=== PATIENT | female | born 1995 ===

== ENCOUNTER 2021-09-07 08:00 | Outpatient (RCR) | payer BC, SELFPAY ==
[2021-08-16 13:56] VITALS: BMI 27.4
--- NOTE | 2021-08-16 14:27 | PC.NURSE ---
Patient self referred to the [facility] [place] [facility] d/t severe depression and anxiety. Reports passive SI having thoughts, for example, wishing she did not exist or what if her car veered off the road. Denied plan or intent. Reports she has a few of these thoughts daily. Hx of chronic passive SI however reports the thoughts are stronger and intrusive and this scares her. Patient also reports SIB superficially cutting her forearm or thigh. Last cut 2 weeks ago. Reports increased work related stressors in addition to working from home for the past 18 months and feels increasingly isolated are triggers. Patient is taking a leave of absence from her job to work on her mental health. Patient works as an [employer]. She lives alone in her apartment. Identified protective factors are her cat and the thought that she is going to be an aunt one day as her brother is planning on having children. Asked if patient started to feel unsafe who could she call and she stated her therapist. Patient has the crisis number if needed. Brother and friends are her identified supports along with her therapist. Patient is alert and oriented x4. Calm and cooperative. Presents with depressed mood anxious affect. Medications reconciled with patient and patient's pharmacy. Patient reports taking medications as prescribed. Gave verbal permission to email her a copy of her safety plan.
--- NOTE | 2021-08-16 15:10 | PC.NURSE ---
Case opened in treatment team
--- NOTE | 2021-08-16 16:40 | HO.PS.ADMBH ---
HPI Chief Complaint: Anxiety, Depression Sources of Information: patient interviewed, chart reviewed and crisis/core team assessment reviewed HPI Subjective Notes: Harden Warning and Conditional Voluntary Guardianship: No Medical Problems Affecting Mental Status: No Narrative: Patient is a 26-year-old single female, referred by her therapist, due to increased symptoms of depression that include passive SI, thoughts of cutting. She also reports having anxiety with episodes of panic. She reports that she has struggled with depression for years, and last July her symptoms increased. At that time she began individual therapy but did not continue. She reports that in the spring she started working from home, and the isolation has exacerbated thoughts of suicide and cutting. She has been taking medication but was not on therapy. She has a current therapist however now, who also recommended PHP. She does describe having suicidal ideation off and on since she was a teen. She states at times she has wished she would not wake up. She describes these as fleeting, but states they have increased in severity during pandemic. She also describes situational depression. Current medications include Lexapro, amitriptyline, Wellbutrin, Xanax. She also reports history of migraines. She is on a wait list for a prescriber currently. And has an upcoming appointment in August. She did meet with the neuropsychology division chief earlier in the summer, who suggested several changes of her medications. She has been experiencing increasingly intrusive thoughts regarding self-harm, and also difficulty sleeping. She reports past medication trials including sertraline. She states that it did not help her, and that she continue to need higher and higher doses. She took Effexor at 1 point, but experienced nausea and vomiting. Patient describes symptoms of difficulty falling asleep, multiple awakenings, severe symptoms of anxiety and depression including hopelessness, helplessness, tearfulness, anhedonia. She currently lives alone and has found this extremely isolating. She describes a support system including her brother and multiple friends. She denies any history of inpatient level of care or PHP. Past Psychiatric History: Therapist Medical Evaluation Reviewed: Yes [facility]LY [facility] Medical History Migraine Family History: Father lymphoma. Mother breast cancer, double mastectomy. Social History: Raised by parents and her older brother. Reports emotionally repressed household during her childhood. Describes her brother as supportive. Met all developmental milestones as expected. Graduated from high school, college, grad school. Currently employed as [employer]. Substance History: Vapes marijuana approximately 4 times monthly. No other substance use reported. Trauma History: Reports parents as emotionally negletful while she was growing up. Diagnostics Vital Signs (24Hr): Body Mass Index 27.4 Meds/Allergies Allergies Allergies Allergy/AdvReac Type Severity Reaction Status Date / Time No Known Allergies Allergy Verified 08/16/21 14:30 Mental Status Exam Mental Status Exam Narrative: Well-developed, well-nourished female, in NAD. Alert and oriented x4. Patient Appearance: Well Grooomed and Appropriate Patient Orientation: Person, Place, Time and Situation Level of Consciousness: Awake, Appropriate and Alert Patient Behavior: Appropriate, Cooperative and Good Eye Contact Mood Description: Appropriate, Depressed and Anxious Affect Description: Calm, Appropriate, Depressed and Anxious Ability to Follow Directions: Excellent Speech Pattern: Clear, Appropriate and Coherent Memory Description: Intact Hallucinations: None Delusions: Not Present Thought Process: Intact Thought Content: positive for Intact, positive for Goal Oriented, positive for Linear and positive for Suicidal Ideation (Describes intrusive thoughts to harm self, with increasing frequency over past few months..) Depressive Symptoms: Increased Anxiety, Increased Irritability, Feelings of Worthlessness, Hopelessness, Feelings of Guilt, Unhappiness, Thoughts of /Suicide (no active plan) and Difficulty Concentrating Judgement: Fair Telehealth Telehealth Location of provider rendering services: practice address Location of patient: address on file Patient Identification confirmed using: Name, : Yes Telehealth method: video Patient verbally consented to treatment: Yes Patient verbally consented to billing insurance company: Yes Patient informed of any privacy concerns related to visit: Yes Time spent with patient (mins): 45 Assessment & Plan Assessment & Plan (1) Major depressive disorder, recurrent severe without psychotic features: Status: Acute Code(s): F33.2 - Major depressive disorder, recurrent severe without psychotic features Assessment and Plan: Patient reports that she feels current doses of medications appear to be helping, including Wellbutrin and Lexapro combination. However, she is describing increased intrusive thoughts to harm self, and would like to focus on this symptom. She denies any intent or plan at this time, and describes it more as passive. Currently no safety concern. discussed adding a low does atypical antipsychotic. We discussed weight gain with quetiapine as a potential side effect, although would also would help with sleep. We discussed other alternatives including low-dose risperidone all, which can also affect week. Patient is willing to try Abilify 2 mg at this time. (2) Generalized anxiety disorder: Status: Acute Code(s): F41.1 - Generalized anxiety disorder Assessment and Plan: Patient reports she is taking the Xanax as prescribed. We discussed a recommendation she had received in the past about switching over to Klonopin, as it is longer acting. We discussed other options such as BuSpar, Vistaril. This administrative underwriter did advise that she make 1 medication change at a time, however. She agreed to this, and is willing to revisit idea of changing Xanax during subsequent visit. Assessment and Plan: 1. Start Abilify 2 mg daily at night. 2. Continue other medications as ordered. 3. Will follow up as per protocol. Patient educated on: diagnosis, medication risk/benefits and therapeutic strategies Informed Consent: understands Reason for continued partial hosp. stay Substantial Risk for: harm to self, inability to function and med/psych decompensation Certification I certify that partial hospital treatment is medically necessary due to the symptoms and problems resulting from the patient's mental illness and the failure to treat the patient at the partial hospital level of care would likely result in the patient requiring inpatient psychiatric care which could not be prevented at a less intensive level of care.
--- NOTE | 2021-08-23 14:25 | HO.PHPPROGNO ---
Subjective Subjective Date of Service: 08/23/21 Reason For Visit: Anxiety, Depression Guardianship: No Medical Problems Affecting Mental Status: No Interim History: Keyla reports feeling Abilify has helped somewhat with depressive symptoms, and says they have decreased. Reports decrease in intrusive thoughts, and no thoughts to harm self or cut. Patient has also reported decreased anxiety, states she has only needed to use her Xanax p.r.n. twice daily 3 times out of the past 7 days. She does continue utilizing it at night. Feels overall that PHP is helpful. Medication Compliance: Yes Side effects from medications: No Attending Groups: Yes Review of Systems Acute medical concerns: No Medical Review of Systems: unchanged Review of Systems Review of Systems Yes all other systems are reviewed and are negative Constitutional: Reports no additional constitutional complaints Eyes: Reports as per HPI Reports Normal hearing present Cardiovascular: Reports no additional cardiovascular complaints Reports Normal hearing present Mental Status Exam Mental Status Exam Narrative: Well-developed, well-nourished female, in NAD. Sitting up, fully attentive. Well groomed and appropriately dressed. Patient Appearance: Well Grooomed and Appropriate Patient Orientation: Person, Place, Time and Situation Level of Consciousness: Appropriate and Alert Patient Behavior: Appropriate and Cooperative Mood Description: Appropriate, Depressed and Anxious Affect Description: Appropriate, Depressed and Anxious Patient Cognition Impaired: No Ability to Follow Directions: Excellent Speech Pattern: Clear, Appropriate and Coherent Memory Description: Intact Hallucinations: None Delusions: Not Present Thought Process: Intact, Goal Oriented and Linear Thought Content: positive for Intact, positive for Goal Oriented and positive for Linear Depressive Symptoms: Increased Anxiety and Loss of Int. in Activity Judgement: Fair Diagnostics Vital Signs (24Hr): Body Mass Index 27.4 Assessment & Plan Assessment & Plan (1) Major depressive disorder, recurrent severe without psychotic features: Status: Acute Code(s): F33.2 - Major depressive disorder, recurrent severe without psychotic features Assessment and Plan: Patient reports decrease in intrusive thoughts of self-harm and cutting. Reports no side effects regarding Abilify. Overall feels is improving while in PHP. (2) Generalized anxiety disorder: Status: Acute Code(s): F41.1 - Generalized anxiety disorder Assessment and Plan: Patient has Xanax scheduled 0.25 p.r.n. b.i.d. for anxiety. Reports that over the past 7 days, she has only needed to take it twice in 1 day 3/7 days. She reports this is an improvement. We discussed consideration to switch to a long-acting benzodiazepine such as Klonopin. Discussed alternatives such as increasing Lexapro to help with anxiety or increase amitriptyline. Patient reports that she did not tolerate when Lexapro was increased at 1 time, as it made her feel ?too tired ?. She is however willing to consider increase amitriptyline. Discussed leaving Xanax as is, as it is effectively helping manage anxiety, she has been using it with less frequency over the past week, with no type of withdrawal symptoms, and does not appear to be abusing any way. She reports that she is concerned that when she returns to work she will need more Xanax, as she seems to be experiencing situational anxiety regarding work. She did state however that she is learning healthier coping skills while in [facility], and will continue to work on these while attending groups. Assessment and Plan: 1. Increase amitriptyline to 10mg in am, 25mg at bedtime. 2. Continue abilfy 2mg at bedtime. 3. Continue with all other medications as prescribed. 4. Will follow up in several days in order to assess level of anxiety and any possible sedation with added amitriptyline. Patient educated on: diagnosis, medication risk/benefits and therapeutic strategies Informed Consent: understands Certification I certify that partial hospital treatment is medically necessary due to the symptoms and problems resulting from the patient's mental illness and the failure to treat the patient at the partial hospital level of care would likely result in the patient requiring inpatient psychiatric care which could not be prevented at a less intensive level of care. Greater than 50% of the session was spent on counseling and/or coordination of care Discharge Plan Discharge Attending provider: Juni Bernstein Medications: New aripiprazole [Abilify] 2 mg tablet 2 mg PO BEDTIME Qty: 14 RF: 0 No Action sumatriptan succinate 50 mg Tablet 50 mg PO DAILY PRN (Reason: Migraine Headache) RF: 0 alprazolam 0.25 mg Tablet 0.25 mg PO BID PRN (Reason: Anxiety) RF: 0 amitriptyline 25 mg Tablet 25 mg PO BEDTIME RF: 0 escitalopram oxalate [Lexapro] 20 mg Tablet 20 mg PO DAILY RF: 0 bupropion HCl [Wellbutrin XL] 300 mg Tablet Extended Release 24 Hr 300 mg PO QAM RF: 0 melatonin 5 mg Lozenge 5 mg PO BEDTIME PRN (Reason: Sleep) RF: 0 Telehealth Telehealth Location of provider rendering services: practice address Location of patient: address on file Patient Identification confirmed using: Name, : Yes Telehealth method: video Patient verbally consented to treatment: Yes Patient verbally consented to billing insurance company: Yes Patient informed of any privacy concerns related to visit: Yes Time spent with patient (mins): 15
--- NOTE | 2021-08-25 14:04 | P.PNPSP_ITS ---
Subjective Subjective Date of Service: 08/25/21 Reason For Visit: Anxiety, Depression Guardianship: No Medical Problems Affecting Mental Status: No Interim History: Vandana reports decrease in intrusive thoughts, states that she has had several regarding passive SI, but that they are much decreased since she began Abilify. She reports she started taking 10 mg amitriptyline in the morning, in addition to her 25 mg at bedtime. She reports it not yet appear to help with anxiety, but it has made her tired. Reports she continues taking a reduced dose of Xanax. States that when she went away for vacation this summer she did not take it for a week and did not need it. Sera expressed concern regarding return to work, as work is a trigger for her anxiety. Medication Compliance: Yes Side effects from medications: No Attending Groups: Yes Review of Systems Acute medical concerns: No Medical Review of Systems: unchanged Review of Systems Review of Systems Yes all other systems are reviewed and are negative Mental Status Exam Mental Status Exam Narrative: Patient presents as alert and oriented x4, well-nourished, well- developed female, in no apparent distress. Appropriately groomed and dressed. Sitting up with erect posture fully attentive during encounter. Eye contact within normal limits. Calm and cooperative behavior, no involuntary movements noted. Speech was fluent, unimpaired, normal rate and rhythm. Mood anxious, affect congruent. Thought process and associations were linear, goal directed. Thought content was normal, future oriented. No evidence of any type of delusional thoughts or hallucinations noted or reported. Patient does report random passing intrusive thoughts of passive SI, but states they have decreased much since starting Abilify. Patient has no intent or plan to act on any type of SI. No thoughts of harming others. Appears to be reliable historian. Judgment and insight fair. Ambulation not observed. Diagnostics Vital Signs (24Hr): Body Mass Index 27.4 Assessment & Plan Assessment & Plan (1) Major depressive disorder, recurrent severe without psychotic features: Status: Acute Code(s): F33.2 - Major depressive disorder, recurrent severe without psychotic features Assessment and Plan: Patient is satisfied with current medications and reports her depressive symptoms are controlled at this time, including a decrease in any intrusive thoughts of si. (2) Generalized anxiety disorder: Status: Acute Code(s): F41.1 - Generalized anxiety disorder Assessment and Plan: Patient reports continuing with anxiety symptoms. She does agree that although she has a certain baseline underlying anxiety, at times her anxiety is situational, especially when it is surrounding work related issues. She reports that often times she has difficulty sleeping, and takes the Xanax at night not only for anxiety but also to help her sleep. She is not comfortable with the amitriptyline 10 in the morning, as it is making her tired. We discussed clonidine as a possible medication. Patient reports that often times she does feel her heart racing at night and does tend to have a higher blood pressure during those times. She was agreeable to starting this med. Assessment and Plan: 1. Change amitriptyline to 35 mg at bedtime, stop a.m. 10 mg dose. Patient has ample supply at home, no script has been sent in for 10 mg tabs. 2. Add clonidine 0.1 mg at bedtime. A 7-day supply sent to pharmacy. 3. Continue other medications as prescribed. 4. Will follow-up with patient as per protocol. Patient educated on: diagnosis, medication risk/benefits and therapeutic strategies Informed Consent: understands Reason for contiued partial hosp. stay Substantial Risk for: inability to function and med/psych decompensation Certification I certify that partial hospital treatment is medically necessary due to the symptoms and problems resulting from the patient's mental illness and the failure to treat the patient at the partial hospital level of care would likely result in the patient requiring inpatient psychiatric care which could not be prevented at a less intensive level of care. Greater than 50% of the session was spent on counseling and/or coordination of care Discharge Plan Discharge Attending provider: Juni Bernstein Additional Instructions: New PCP appointment at [address] with Shasha Sotelo on November 09, 2021 at 1:45 PM. Office # [phone]. Patient to fax records from previous PCP prior to appointment. Fax number . Medications: New aripiprazole [Abilify] 2 mg tablet 2 mg PO BEDTIME Qty: 14 RF: 0 clonidine HCl 0.1 mg tablet 0.1 mg PO BEDTIME Qty: 7 RF: 0 No Action sumatriptan succinate 50 mg Tablet 50 mg PO DAILY PRN (Reason: Migraine Headache) RF: 0 alprazolam 0.25 mg Tablet 0.25 mg PO BID PRN (Reason: Anxiety) RF: 0 amitriptyline 25 mg Tablet 25 mg PO BEDTIME RF: 0 escitalopram oxalate [Lexapro] 20 mg Tablet 20 mg PO DAILY RF: 0 bupropion HCl [Wellbutrin XL] 300 mg Tablet Extended Release 24 Hr 300 mg PO QAM RF: 0 melatonin 5 mg Lozenge 5 mg PO BEDTIME PRN (Reason: Sleep) RF: 0 Stand Alone Forms: Patient Portal Discharge page Telehealth Telehealth Location of provider rendering services: practice address Location of patient: address on file Patient Identification confirmed using: Name, : Yes Telehealth method: video Patient verbally consented to treatment: Yes Patient verbally consented to billing insurance company: Yes Patient informed of any privacy concerns related to visit: Yes Time spent with patient (mins): 15
--- NOTE | 2021-08-26 09:57 | PC.NURSE ---
Patient will not be attending the program today as she has a doctors appointment.
--- NOTE | 2021-08-30 15:52 | P.PNPSP_ITS ---
Subjective Subjective Date of Service: 08/30/21 Reason For Visit: Anxiety, Depression Guardianship: No Medical Problems Affecting Mental Status: No Interim History: Keyla reports that the added clonidine is helping her to sleep better, and has decreased her use of Xanax. She reports continuing with Abilify, which she attributes to working well. Reports decreased intrusive thoughts of SI. She states that she did have some passive SI over the weekend, buth that they were brief, with no intent or plan. She denies any thoughts of harm today. Medication Compliance: Yes Side effects from medications: No Attending Groups: Yes Review of Systems Acute medical concerns: No Medical Review of Systems: unchanged Review of Systems Review of Systems Yes all other systems are reviewed and are negative Mental Status Exam Mental Status Exam Narrative: Well-nourished, well-developed female, in NAD. Fully attentive during encounter. Patient Appearance: Well Grooomed and Appropriate Patient Orientation: Person, Place, Time and Situation Level of Consciousness: Awake, Appropriate and Alert Patient Behavior: Appropriate, Cooperative and Good Eye Contact Mood Description: Calm, Appropriate and Depressed Affect Description: Appropriate, Depressed and Anxious (somewhat, but much improved.) Patient Cognition Impaired: No Ability to Follow Directions: Excellent Speech Pattern: Clear, Appropriate and Coherent Memory Description: Intact Hallucinations: None Delusions: Not Present Thought Process: Intact, Goal Oriented and Linear Thought Content: positive for Intact, positive for Goal Oriented and positive for Linear Depressive Symptoms: Increased Anxiety, Loss of Int. in Activity, Hopelessness, Feelings of Guilt and Thoughts of /Suicide (fleeting, no intent or plan) Judgement: Fair Diagnostics Vital Signs (24Hr): Body Mass Index 27.4 Assessment & Plan Assessment & Plan (1) Major depressive disorder, recurrent severe without psychotic features: Status: Acute Code(s): F33.2 - Major depressive disorder, recurrent severe without psychotic features Assessment and Plan: Patient reports overall depression is improving. Reports much less intrusive thoughts regarding thoughts of self-harm, and none today. no safety concerns at this time. She reports that she was still taking the amitriptyline with 25 mg at night in 10:00, plans to switch it today to take the whole 35 mg at bedtime. (2) Generalized anxiety disorder: Status: Acute Code(s): F41.1 - Generalized anxiety disorder Assessment and Plan: Patient reports that clonidine is working very well for anxiety. Discussed adding a low dose in the morning, as she describes her anxiety as noticeable when she wakes up. She was agreeable to adding a dose of 0 0.05 mg clonidine in the morning. Assessment and Plan: 1. Increase clonidine to 0.05mg in am, 0.1mg at bedtime. 2. Continue other medications without changes at this time. 3. Refills for a 30-day supply of clonidine and abilify sent to pharmacy. Patient reports she does not need any other refills at this time. 4. Follow-up as per protocol. Patient educated on: diagnosis, medication risk/benefits and therapeutic strategies Informed Consent: understands Reason for contiued partial hosp. stay Substantial Risk for: inability to function and med/psych decompensation Certification I certify that partial hospital treatment is medically necessary due to the symptoms and problems resulting from the patient's mental illness and the failure to treat the patient at the partial hospital level of care would likely result in the patient requiring inpatient psychiatric care which could not be prevented at a less intensive level of care. Greater than 50% of the session was spent on counseling and/or coordination of care Discharge Plan Discharge Attending provider: Juni Bernstein Additional Instructions: New PCP appointment at [address] with Shasha Sotelo on November 09, 2021 at 1:45 PM. Office # [phone]. Patient to fax records from previous PCP prior to appointment. Fax number [phone]. Medications: New aripiprazole [Abilify] 2 mg tablet 2 mg PO DAILY Qty: 30 RF: 0 clonidine HCl 0.1 mg tablet 0.1 mg PO BID MDD see instructions below. Qty: 45 RF: 0 No Action sumatriptan succinate 50 mg Tablet 50 mg PO DAILY PRN (Reason: Migraine Headache) RF: 0 alprazolam 0.25 mg Tablet 0.25 mg PO BID PRN (Reason: Anxiety) RF: 0 amitriptyline 25 mg Tablet 25 mg PO BEDTIME RF: 0 escitalopram oxalate [Lexapro] 20 mg Tablet 20 mg PO DAILY RF: 0 bupropion HCl [Wellbutrin XL] 300 mg Tablet Extended Release 24 Hr 300 mg PO QAM RF: 0 melatonin 5 mg Lozenge 5 mg PO BEDTIME PRN (Reason: Sleep) RF: 0 Stand Alone Forms: Patient Portal Discharge page Telehealth Telehealth Location of provider rendering services: practice address Location of patient: address on file Patient Identification confirmed using: Name, : Yes Telehealth method: video Patient verbally consented to treatment: Yes Patient verbally consented to billing insurance company: Yes Patient informed of any privacy concerns related to visit: Yes Time spent with patient (mins): 15
--- NOTE | 2021-09-01 16:27 | PC.NURSE ---
I spoke with the clients therapist Di Anderson about client progress and discharge plans including, possibly DBT.
--- NOTE | 2021-09-07 12:03 | P.PNPSP_ITS ---
Subjective Subjective Date of Service: 09/07/21 Reason For Visit: Anxiety, Depression Interim History: I evaluated the pt this morning and upon interview she reports her sleep has continued to be interrupted. Says the clonidine has ?helped a lot? for falling asleep but she is waking up once or twice a night, has difficulty falling back to sleep, will end up taking half a xanax. Discussed switching to klonopin, as she has reviewed benefits of utilizing a longer acting benzo with prev prescribers and would like to try this to help with sleep maintenance and getting off xanax. Denies SE on abilify and says it has ?helped a lot with intrusive thoughts,? says depressive or suicidal thoughts are more passive, ?I wont ruminate on them.? Denies plan or intent for suicide. Continues to endorse sx of depression, ?still wanting to stay in bed.? Interested in increasing abilify dose. Has been on lexapro for about a year, dose increased to 20 mg 6 mo ago, thinks it has helped. Denies the increase in amitriptyline helping. Has initial medication eval appointment at [facility] on Monday. Says she is feeling safe. Looking into DBT groups. Medication Compliance: Yes Side effects from medications: No Attending Groups: Yes Review of Systems Acute medical concerns: No Medical Review of Systems: unchanged Mental Status Exam Mental Status Exam Narrative: Narrative:?Well-nourished, well-developed female, in NAD.? Fully attentive during encounter. Patient Appearance:?Well Grooomed and Appropriate Patient Orientation:?Person, Place, Time and Situation Level of Consciousness:?Awake, Appropriate and Alert Patient Behavior:?Appropriate, Cooperative and Good Eye Contact Mood Description:?Calm, Appropriate and Depressed Affect Description:?Appropriate, Depressed and Anxious (somewhat, but much improved.) Patient Cognition Impaired:?No Ability to Follow Directions:?Excellent Speech Pattern:?Clear, Appropriate and Coherent Memory Description:?Intact Hallucinations:?None Delusions:?Not Present Thought Process:?Intact, Goal Oriented and Linear Thought Content:?positive for Intact, positive for Goal Oriented and positive for Linear Depressive Symptoms:?Increased Anxiety, Loss of Int. in Activity, Hopelessness, Feelings of Guilt and Thoughts of /Suicide (fleeting, no intent or plan) Judgement:?Fair Diagnostics Vital Signs (24Hr): Body Mass Index 27.4 Assessment & Plan Assessment & Plan (1) Major depressive disorder, recurrent severe without psychotic features: Status: Acute Code(s): F33.2 - Major depressive disorder, recurrent severe without psychotic features (2) Generalized anxiety disorder: Status: Acute Code(s): F41.1 - Generalized anxiety disorder Assessment and Plan: Patient continues to report benefit on abilify for sx of depression, would like to increase dose to target residual intrusive thoughts regarding thoughts of self-harm. no safety concerns at this time, denies SI/SIB upon inquiry today.?Has been taking amitriptyline 35 mg at night but denies benefit for sleep. Willing to trial klonopin for anxiety, may help with sleep maintenance. Will hold xanax and follow up with new psych provider on Monday through [facility]. Has only been using clonidine for sleep at night with reported benefit but has been waking up with anxiety. (2) Generalized anxiety disorder: ?Assessment and Plan: Patient reports that clonidine is working very well for anxiety.? Discussed adding a low dose in the morning, as she describes her anxiety as noticeable when she wakes up.? She was agreeable to adding a dose of 0 0.05 mg clonidine in the morning. ?Assessment and Plan: 1. Continue clonidine 0.1mg at bedtime. Increase abilify to 5 mg QAM for sx of depression. Switch xanax to klonopin 0.25 mg BID for anxiety sx. 2. Continue other medications without changes at this time. 3. Follow-up as per protocol. Patient educated on: medication risk/benefits Certification I certify that partial hospital treatment is medically necessary due to the symptoms and problems resulting from the patient's mental illness and the failure to treat the patient at the partial hospital level of care would likely result in the patient requiring inpatient psychiatric care which could not be prevented at a less intensive level of care. Greater than 50% of the session was spent on counseling and/or coordination of care Discharge Plan Discharge Attending provider: Juni Bernstein Additional Instructions: New PCP appointment at [address] with Shasha Sotelo on November 09, 2021 at 1:45 PM. Office # [phone]. Patient to fax records from previous PCP prior to appointment. Fax number . Appointment with therapist Di Anderson APPLICATION SUPPORT MANAGER 09/08/21, [facility] 09/09/21, is also calling Tessa Mccrary for DBT Medications: New clonidine HCl 0.1 mg tablet 0.1 mg PO BID 30 Days Qty: 45 RF: 0 aripiprazole [Abilify] 5 mg tablet 5 mg PO DAILY Qty: 7 RF: 0 clonazepam [Klonopin] 0.5 mg tablet 0.25 mg PO BID Qty: 7 RF: 0 No Action sumatriptan succinate 50 mg Tablet 50 mg PO DAILY PRN (Reason: Migraine Headache) RF: 0 alprazolam 0.25 mg Tablet 0.25 mg PO BID PRN (Reason: Anxiety) RF: 0 amitriptyline 25 mg Tablet 25 mg PO BEDTIME RF: 0 escitalopram oxalate [Lexapro] 20 mg Tablet 20 mg PO DAILY RF: 0 bupropion HCl [Wellbutrin XL] 300 mg Tablet Extended Release 24 Hr 300 mg PO QAM RF: 0 melatonin 5 mg Lozenge 5 mg PO BEDTIME PRN (Reason: Sleep) RF: 0 Stand Alone Forms: Patient Portal Discharge page
--- NOTE | 2021-09-07 13:11 | PC.NURSE ---
Patient is scheduled to discharge from [facility] today. Reviewed patient's medications with patient. Patient reports she takes her medications as prescribed. Feeling anxious regarding discharge. Denied SI, no safety concerns. Patient has the crisis number if needed.
== END 2021-09-08 07:13 | disposition home or self-care (01) ==
LOC: HO.PHPA 08:00
PROVIDERS: Visit Provider Psychiatry & Neurology Psychiatry
DX: F33.2 Major depressive disorder, recurrent severe without psychotic features (principal); F41.1 Generalized anxiety disorder; Z79.899 Other long term (current) drug therapy
CPT/HCPCS: 90853